=== PATIENT | male | born 1950 | race Caucasian/White ===

== ENCOUNTER 2025-03-04 22:58 | Emergency (ER) | payer MEDICARE, OTHER ==
[~2025-03-04] VITALS: Ht 175.3 cm; Wt 100.0 kg
[2025-03-04 23:13] VITALS: BP 131/56; PULSE 78; RESP 19; O2SAT 95
--- NOTE | 2025-03-04 23:19 | Physician Documentation ---
History of Present Illness ~ Stated Complaint: FOOT PAIN Time Seen by MD: 23:16 HPI 74-year-old male with complaints of continued right foot pain after dropping a hammer on his foot 3 days ago. Patient was at a and has a few nieces that our nurses who advised him to come to the emergency room to be evaluated for possible foot fracture. Medication Reconciliation Allergies: Coded Allergies: terazosin (Verified Allergy, Unknown, 03/04/25) Past Medical History Past Medical History: *CARDIOVASCULAR*, Coronary Artery Disease, Hypertension, Myocardial Infarction Review of Systems All Other Systems at this time: Reviewed and Negative Musculoskeletal: Reports: see HPI Physical Exam General Appearance: alert, WD/WN, no apparent distress Extremities Right lower extremity swollen to the dorsum with dependent ecchymosis to the toes sensation and circulation intact good pedal pulse +2 Progress Results/Orders Results/Orders Orders - TARYN RIBEIRO NP Foot, Complete (3vw Min) (03/04/25 23:17) Completed Orders - TARYN RIBEIRO [employer] Foot, Complete (3vw Min) (03/04/25 23:17) Vital Signs 03/04/25 23:13 Temp 98.2 Pulse 78 Resp 19 B/P (MAP) 131/56 Pulse Ox 95 O2 Flow Rate 0 Medical Decision Making Findings Blunt trauma to the right foot hammer fell on foot x-ray to evaluate for any osseous abnormality these abnormalities noted in x-ray. Patient will be discharged Differential Dx:Considerations: Include: Cellulitis, Contusion, Strain, Other Departure Time of Disposition: 00:31 Disposition: 01 HOME / SELF CARE / HOMELESS Impression: Primary Impression: Foot pain Condition: Stable Discharge Instructions: Foot Pain Additional Instructions: EXAMINATIONS: 3 views of the right foot CLINICAL HISTORY: FOOT PAIN COMPARISON: None Findings and impression: No grossly displaced fractures, dislocations or bony destructive changes are evident on the provided views. If the patient has continued symptoms clinically suspicious for radiographically occult fracture, follow-up radiographs could be obtained in 7-10 days time. Referrals: NO PRIMARY CARE PROVIDER (PCP) Education Educated: Patient Educated regarding: diagnosis, treatment, need for follow up Signature Scribe Signature: The note accurately reflects work and decisions made by me.Taryn ZUNIGA 03/04/25 23:18 Attestation: The note accurately reflects work and decisions made by me.Taryn Ribeiro - NADIA 03/04/25 23:18 TARYN RIBEIRO NP Mar 04, 2025 23:19
--- NOTE | 2025-03-05 00:24 | RADIOLOGY REPORT ---
EXAMINATIONS: 3 views of the right foot CLINICAL HISTORY: FOOT PAIN COMPARISON: None Findings and impression: No grossly displaced fractures, dislocations or bony destructive changes are evident on the provided views. If the patient has continued symptoms clinically suspicious for radiographically occult fracture, fol low-up radiographs could be obtained in 7-10 days time.
[2025-03-05 00:33] VITALS: TEMP 98.2
== END 2025-03-05 00:34 | disposition home or self-care (01) ==
LOC: ER 22:58
DX: M79.671 Pain in right foot (principal); I10 Essential (primary) hypertension; I25.10 Atherosclerotic heart disease of native coronary artery without angina pectoris; I25.2 Old myocardial infarction; Z88.8 Allergy status to other drugs, medicaments and biological substances; W20.8XXA Other cause of strike by thrown, projected or falling object, initial encounter; Y93.89 Activity, other specified; Y92.89 Other specified places as the place of occurrence of the external cause; Y99.8 Other external cause status
CPT/HCPCS: 73630; 99283